=== PATIENT | male | born 1965 | race Caucasian/White ===

== ENCOUNTER 2023-03-25 15:24 | Emergency (ER) | payer BC, OTHER ==
[~2023-03-25] VITALS: Ht 167.6 cm; Wt 74.8 kg
[2023-03-25 16:44] VITALS: BP 134/74; TEMP 98.4
[2023-03-25] MEDS ORDERED: TDAP [DIPH/PERTUSSIS/TET] 0.5 ML VIAL IM ONE (17:27)
[2023-03-25] MEDS: TDAP [DIPH/PERTUSSIS/TET] 0.5 ML VIAL IM ONE (17:30)
[2023-03-25] MEDS ORDERED: LIDOCAINE HCL/PF 1% 30 ML SDV ONE (18:06)
[2023-03-25] MEDS: LIDOCAINE HCL/PF 1% 30 ML VIAL IM ONE (18:12)
[2023-03-25 20:10] VITALS: O2SAT 100
== END 2023-03-26 00:51 | disposition home or self-care (01) ==
LOC: ER 15:31
DX: S63.294A Dislocation of distal interphalangeal joint of right ring finger, initial encounter (principal); Z60.2 Problems related to living alone; W01.0XXA Fall on same level from slipping, tripping and stumbling without subsequent striking against object, initial encounter; Y93.89 Activity, other specified; Y92.89 Other specified places as the place of occurrence of the external cause; Y99.8 Other external cause status
CPT/HCPCS: 99285; 26770; 73200; 90471; 90715; 73130; J3490 ×2; A6403